=== PATIENT | male | born 1970 | race Caucasian/White ===

== ENCOUNTER 2025-03-02 06:52 | Day surgery (SDC) | payer BC ==
[~2025-03-02] VITALS: Ht 177.8 cm; Wt 102.3 kg
--- NOTE | ~2025-03-02 | OR ---
[facility] [address], [place] [address] Draft DATE OF OPERATION: 03/02/2025 SURGEON: Stu Muir MD PREOPERATIVE DIAGNOSIS: Colon screening. POSTOPERATIVE DIAGNOSES: 1. Hyperplastic polyp, left colon. 2. Sigmoid diverticulosis. PROCEDURE: Total colonoscopy to cecum with cold morcellation polypectomy x1. ANESTHESIA: Intravenous sedation, fentanyl 150 mcg, Versed 9 mg. INDICATION: This 54-year-old white man is a patient Dr. Raj Contreras and referred for colon screening. He has no symptoms of bleeding, diarrhea, or constipation and no family history of colon cancer. On physical examination, he is noted to have some bulky thyroid disease and did undergo ultrasound guided fine-needle aspiration biopsy by [place] last week. Biopsy results are pending. The patient understands the risk of screening colonoscopy including, but not limited to bleeding, infection, and perforation. FINDINGS: Prep was excellent. Complete colonoscopy was undertaken of the cecum. There were diverticula of the sigmoid colon, a small hyperplastic polyp of the left colon, which was excised. DESCRIPTION OF PROCEDURE: The patient was brought to the endoscopy suite and placed in lateral decubitus position, given intravenous sedation to the point of slurred speech and nystagmus. Digital rectal examination was normal including the prostate. An Olympus video colonoscope was passed in the rectum and manipulated throughout the colon ultimately intubating the cecum. It appeared that insufflation of air was lacking and upon withdrawal of scope, it was considered an unreliable exam. On that basis, the PATIENT NAME: DALLAS LEIGH OPERATIVE REPORT DATE OF : 66 REPORT #: [id number] PHYSICIAN: STU MUIR MD PCP: RAJ CONTRERAS MD REPORT IS CONFIDENTIAL AND NOT TO BE RELEASED WITHOUT AUTHORIZATION [facility] [address], [place] [address] Draft scope was examined and found to be normal. In fact, it was a new scope. The buttons were changed, which allowed for better insufflation of air. On that basis, the scope was reinserted and passage to the cecum was once again undertaken at this time fully intubating the cecum and fully dilating the colon to an optimal degree. The scope was withdrawn and examination once again undertaken showing no sign of abnormality into the proximal left colon where small hyperplastic appearing polyp was noted. This was excised with cold morcellation technique. Further withdrawal showed diverticula of the sigmoid. Retroflexed view of the rectum was normal. Scope was removed. The patient was taken to recovery room in good condition. CONCLUDING DIAGNOSES: Probable hyperplastic polyp x1 and diverticulosis of sigmoid. PLAN: Recommend repeat colonoscopy in 10 years based on current guidelines, sooner if symptoms should develop. I would recommend high-fiber diet regarding the sigmoid diverticulum. He will return to the ongoing care of Dr. Raj Contreras. We will be evaluating and assessing his pathology reports and fine-needle aspiration biopsy of the thyroid, which should be available soon. MD ADILIA Arenas/BRANDON /[id number] cc: Raj Contreras MD Copies: RAJ CONTRERAS MD ~ PATIENT NAME: DALLAS LEIGH [facility] OPERATIVE REPORT DATE OF : 66 REPORT #: [id number] PHYSICIAN: STU MUIR MD PCP: RAJ CONTRERAS MD REPORT IS CONFIDENTIAL AND NOT TO BE RELEASED WITHOUT AUTHORIZATION
[~2025-03-02 06:52] MED LIST: LIPITOR40 MG PO; LOSARTAN-HCTZ1 EAC1 PO; MIDAZOLAM HCL 5 MG/5 ML VIAL IV PRN; NORVASC2.5 MG PO; OMEPRAZOLE20 MG PO; fentaNYL citrate 100 MCG/2 ML VIAL IV PRN
[2025-03-02] MEDS ORDERED: LACTATED RINGER'S 1,000 ML IV SCH (07:00)
[2025-03-02] MEDS ORDERED: IBLOOD GLUCOSE TEST STRIP 1 EA TEST VI PRN (07:00)
[2025-03-02] MEDS ORDERED: LIDOCAINE HCL 1% 5 ML SDV INJ ONE (07:00)
[2025-03-02 07:05] VITALS: BP 138/97
[2025-03-02] MEDS ORDERED: MIDAZOLAM HCL 5 MG/5 ML VIAL ONE (08:43)
[2025-03-02] MEDS ORDERED: fentaNYL citrate 100 MCG/2 ML VIAL ONE (08:43)
--- NOTE | 2025-03-02 10:17 | NUR ---
03/02/25 1017 Sheets,Pilar 0949 PT ARRIVED TO PACU WITH EYES OPEN AND TALKING TO RN. ABD NOTED TO BE TIGHT AND DISTENDED, PT ENCOURAGED TO PASS GAS. INCREASED BP NOTED. PT REPORTS "IT JUST GAS PAIN," WHEN ASKED ABOUT PAIN. 0967 MD AT BEDSIDE TALKING TO PT, MD AWARE OF BP.
[2025-03-02 10:56] VITALS: BP 171/108
--- NOTE | 2025-03-04 15:53 | PATH ---
[facility] [address] [facility] [place] [address] Signed SPECIMEN(S): A DESCENDING POLYP SPECIMEN SOURCE: A. DESCENDING POLYP CLINICAL HISTORY: Initial screening colonoscopy, diverticulosis, polyps FINAL PATHOLOGIC DIAGNOSIS: Descending polyp: - Tubular adenoma (one fragment). JVR:renetta MICROSCOPIC EXAMINATION: Histologic sections of all submitted blocks are examined by light microscopy. These findings, together with the gross examination, support the pathologic diagnosis. GROSS DESCRIPTION: The specimen, labeled and designated "Esvin descending polyp," is received in formalin and consists of five conroy soft tissue fragments, ranging from 0.1-0.2 cm. Entirely submitted in (A1). VB (under the direct supervision of a pathologist) The Gross Description was prepared using a voice recognition system. The report was reviewed for accuracy; however, sound-alike word errors, addition and/or deletions may occur. If there is any question about this report, please contact Client Services. PERFORMING LABORATORY: Technical component was performed by [facility], [address] [place] [id number] (CLIA# [id number]). Professional interpretation was performed by [facility], [address] [place] [id number] (CLIA#: [id number]). Diagnostician: Miguel Durán MD Pathologist Electronically Signed 03/04/2025 Copies: PATIENT NAME: DALLAS LEIGH PATHOLOGY DATE OF : 66 REPORT #: [id number] PHYSICIAN: [facility] PCP: RAJ DOBBS MD REPORT IS CONFIDENTIAL AND NOT TO BE RELEASED WITHOUT AUTHORIZATION [address] [address] Signed ~ PATIENT NAME: DALLAS LEIGH [facility] PATHOLOG[facility] DATE OF : 66 REPORT #: [id number] PHYSICIAN: [facility] PCP: RAJ DOBBS MD REPORT IS CONFIDENTIAL AND NOT TO BE RELEASED WITHOUT AUTHORIZATION
== END 2025-03-02 10:34 | disposition home or self-care (01) ==
LOC: DS 06:52
PROVIDERS: ATTEND Surgery
PROC: 0DBG8ZZ Excision of Left Large Intestine, Via Natural or Artificial Opening Endoscopic (ICD-10-PCS; principal; 2025-03-02 08:30)
DX: Z12.11 Encounter for screening for malignant neoplasm of colon (principal); D12.4 Benign neoplasm of descending colon; K57.30 Diverticulosis of large intestine without perforation or abscess without bleeding; I10 Essential (primary) hypertension; K21.9 Gastro-esophageal reflux disease without esophagitis; E78.5 Hyperlipidemia, unspecified; E04.1 Nontoxic single thyroid nodule; Z79.899 Other long term (current) drug therapy
CPT/HCPCS: 99153; G0500; J2250; J3010; J7121